=== PATIENT | female | born 1985 | race Caucasian/White ===

== ENCOUNTER 2019-09-18 12:19 | Emergency (ER) | payer OTHER, MEDICAID, SELFPAY ==
[2019-09-18 12:26] VITALS: BP 141/93; PULSE 102; RESP 15; TEMP 36.3; O2SAT 100; BMI 25.0
[2019-09-18 12:58] LABS: Add Manual Diff / Slide Review NO; Basophils Absolute Auto 100 /uL (0-100); Basophils Percent Auto 0.9 % (0-2); Eosinophils Absolute Auto 0 /uL (0-450); Eosinophils Percent Auto 0.3 % (2-4); Hematocrit 37.3 % (36-46); Hemoglobin 12.5 g/dL (12.0-16.0); Lymphocytes Absolute Auto 1900 /uL (1100-4500); Lymphocytes Percent Auto 14.9 % (25-40); Mean Corpuscular HGB Conc 33.5 % (30-36); Mean Corpuscular Hemoglobin 31.6 PG (26-34); Mean Corpuscular Volume 94.2 fL (80-100); Monocytes Absolute Auto 500 /uL (0-900); Monocytes Percent Auto 3.9 % (3-14); Neutrophils Absolute Auto 10200 /uL (1500-7000); Platelet Count 296 X10^3/uL (150-400); Red Blood Cell Count 3.96 X10^6/uL (4.0-5.2); Red Cell Distribution Width 13.3 % (11.6-14.8); White Blood Cell Count 12.8 X10^3/uL (4.5-11.0)
[2019-09-18 13:05] LABS: Prothrombin Time 11.4 SECONDS (10.1-12.7)
[2019-09-18 13:07] LABS: PTT Partial Thromboplastin Tim 28 SECONDS (26.4-36.2)
[2019-09-18 13:11] LABS: Alanine Aminotransferase 24 IU/L (<35); Albumin 4.6 g/dL (3.5-5.0); Albumin Globulin Ratio 1.4 (1.0-2.8); Alkaline Phosphatase 59 U/L (38-126); Aspartate Aminotransferase 39 IU/L (14-36); BUN Creatinine Ratio 27.1 (6-22); Bilirubin Total 0.4 mg/dL (0.2-1.3); Blood Urea Nitrogen 19 mg/dL (7-17); Calcium 9.5 mg/dL (8.4-10.2); Carbon Dioxide 25 mmol/L (22-32); Chloride 104 mmol/L (98-107); Creatine Kinase 306 U/L (30-135); Estimated Glomerular Filt Rate > 60.0 mL/min (>60); Globulin 3.4 g/dL (1.7-4.1); Glucose 123 mg/dL (70-100); HEMOLYSIS < 15 (0-50); Lipase 118 U/L (23-300); Potassium 4.2 mmol/L (3.4-5.1); Sodium 139 mmol/L (137-145)
[2019-09-18 13:23] LABS: Troponin I < 0.012 ng/mL (0.01-0.034)
[2019-09-18 13:26] LABS: CKMB % Relative Index 0.6 % (1.5-5.0); Creatine Kinase MB 1.75 ng/mL (<2.37)
--- NOTE | 2019-09-18 14:06 | DI.RAD.S_ITS ---
PROCEDURE: XR CHEST 2V INDICATIONS: cough, chest pain TECHNIQUE: 2 views of the chest were acquired. COMPARISON: [facility], CHEST 2 VIEW, 05/30/2016, 14:07. [facility], CHEST 2 VIEW, 08/09/2010, 17:01. FINDINGS: Surgical changes and devices: None. Lungs and pleura: Lungs are clear. No pleural effusions or pneumothorax. Mediastinum: Mediastinal contours are normal. Heart size is normal. Bones and chest wall: No suspicious bony abnormalities. Soft tissues appear unremarkable. IMPRESSION: Negative chest. No acute cardiopulmonary process is evident. Dictated by: Michelet Rutledge M.D. on 09/18/2019 at 13:29 Approved by: Michelet Rutledge M.D. on 09/18/2019 at 13:30
[2019-09-18] MEDS: MAG HYDROX/ALUMINUM/SIMETH SUS 20 ML, LIDOCAINE VISCOUS 2% 15 ML PO (14:48)
[2019-09-18 14:58] VITALS: BP 106/68; PULSE 80; O2SAT 100
--- NOTE | 2019-09-18 15:07 | ED_ITS ---
HPI - Chest Pain <JACOBY Cary - Last Filed: 09/19/19 00:16> General Chief Complaint: Chest Pain Stated Complaint: chest burning/pain,back stabbing pain 2xweek Time Seen by Provider: 09/18/19 12:47 Source: patient Mode of arrival: Ambulatory Limitations: no limitations History of Present Illness HPI narrative: This is a 34-year-old female, nonsmoker, who presents to ED with mid chest burning sensation for last 2 weeks. Patient reports she had cold symptoms with severe cough about 3-4 weeks ago which has been subsiding and getting better. Patient also reports having stabbing discomfort to the back for the 1st time this morning. Patient denies abdominal pain, nausea, vomiting, fever or chills. Patient cannot think of any aggravating and relieving factors. LMP 2 weeks ago and has no history of respiratory problems and otherwise very healthy. Related Data Previous Rx's Medication Instructions Recorded omeprazole 20 mg PO DAILY #14 cap 09/18/19 Allergies Allergy/AdvReac Type Severity Reaction Status Date / Time No Known Drug Allergies Allergy Verified 09/18/19 12:26 Review of Systems <JACOBY Cary - Last Filed: 09/19/19 00:16> Review of Systems Narrative: General: Denies fever, chills, fatigue, malaise, sweats. HEENT: Denies sinus pain, ear pain, sore throat, difficulty swallowing, dizziness. Respiratory: Denies dyspnea, (+) cough, wheezing, hemoptysis, sputum. Cardiovascular: Denies (+) midsternum burning chest pain, palpitations, orthopnea, edema. Gastrointestinal: Denies nausea, vomiting, abdominal pain, diarrhea, con stipation, melena. : Denies dysuria, frequency, incontinence, hematuria, urinary retention. Musculoskeletal: Denies weakness, joint pain or bony pain. Skin: Denies rash, skin lesions, or other. Neurologic: Denies weakness, headache, numbness, change in speech, confusion, seizures, incoordination. Psychiatric: No concerning psychosocial issues. 12-point review of systems is negative except for those stated above. Patient History <JACOBY Cary - Last Filed: 09/19/19 00:16> Surgical History Status post laparoscopy Family History Grandmother Age: 94 Diabetes mellitus Social History Smoking Status: Never smoker Smoking Status: Never smoker alcohol intake frequency: holidays/special occasions only Substance Use Type: does not use Exam <JACOBY Cary - Last Filed: 09/19/19 00:16> Narrative Exam Narrative: General appearance: well developed, well nourished, in no acute distress. Head: normocephalic, atraumatic, no scalp lesions, non-tender. ENT: Hearing grossly intact. Nose without bleeding, purulent discharge, septal hematoma or deviation. Mucous membrane moist, no mucosal lesion. Throat without erythema, tonsillar hypertrophy or exudate. Uvula in midline, airway patent. Neck/Thyroid: neck supple, full range of motion, no visible masses or meningeal signs. No JVD, non-tender without lymphadenopathy. Skin: no suspicious rashes, lesions over visible areas. Warm and dry and appropriate color for ethnicity. Heart: no clubbing, no cyanosis, no edema. S1 and S2 normal. RRR w/o murmurs, clicks, or bruits. Lungs: Breathing even and unlabored. No stridor. No accessory muscles used. Able to speak in full sentences. Chest: normal shape and expansion. No chest wall tenderness to palpate. Abdomen: non-obese, non-distended. Bowel sounds in 4 quadrants, soft to palpate. Neurologic: alert and oriented. Cognitive exam, OTOLARYNGOLOGIST and PNS grossly intact on informal exam. Psych: good eye contact, normal affect. Initial Vital Signs Initial Vital Signs: Vital Signs Temperature 97.4 F L 09/18/19 12:26 Pulse Rate 102 H 09/18/19 12:26 Respiratory Rate 15 09/18/19 12:26 Blood Pressure 141/93 H 09/18/19 12:26 Pulse Oximetry 100 09/18/19 12:26 <Yusef Rowe MD - Last Filed: 09/19/19 21:56> Initial Vital Signs Initial Vital Signs: Vital Signs Temperature 97.4 F L 09/18/19 12:26 Pulse Rate 102 H 09/18/19 12:26 Respiratory Rate 15 09/18/19 12:26 Blood Pressure 141/93 H 09/18/19 12:26 Pulse Oximetry 100 09/18/19 12:26 Scores <Artis JACOBY Martinez - Last Filed: 09/19/19 00:16> GCS [place] coma scale eye opening: Spontaneous [place] coma scale verbal response: Orientated [place] coma scale motor response: Obey commands [place] coma scale total score: 15 HEART Score Heart Score history: Slightly Suspicious Heart Score EKG: Non-Specific repolarization disturbance Heart Score Age: < 45 years old Heart Score risk factors: No known risk factors Heart Score troponin: < or = to normal limit Heart Score Total: 1 Course <Artis JACOBY Martinez - Last Filed: 09/19/19 00:16> Orders Ordered: Discontinued Medications Al Hydrox/Mg Hydrox/Simethicone 20 ml/ Lidocaine HCl 15 ml 0 ml PO NOW ONE Stop: 09/18/19 13:48 Last Admin: 09/18/19 14:48 Dose: 35 ml Documented by: SHARON Vital Signs Vital signs: Vital Signs - 8 hr 09/18/19 12:26 09/18/19 14:58 Temperature 97.4 F L Pulse Rate 102 H 80 Respiratory Rate 15 Blood Pressure 141/93 H Blood Pressure [Right Arm] 106/68 Pulse Oximetry 100 100 <Yusef Rowe MD - Last Filed: 09/19/19 21:56> Orders Ordered: Discontinued Medications Al Hydrox/Mg Hydrox/Simethicone 20 ml/ Lidocaine HCl 15 ml 0 ml PO NOW ONE Stop: 09/18/19 13:48 Last Admin: 09/18/19 14:48 Dose: 35 ml Documented by: SHARON Vital Signs Vital signs: Vital Signs - 8 hr 09/18/19 12:26 09/18/19 14:58 Temperature 97.4 F L Pulse Rate 102 H 80 Respiratory Rate 15 Blood Pressure 141/93 H Blood Pressure [Right Arm] 106/68 Pulse Oximetry 100 100 MDM - Chest Pain <Artis JACOBY Martinez - Last Filed: 09/19/19 00:16> Differential Diagnosis Differential diagnosis: Likely atypical chest pain, costochondritis, biliary colic and other (GERD) Medical Records Data Attestation: I reviewed the patient's medical records. Lab Data Attestation: I reviewed the patient's lab results. Result diagrams: 09/18/19 12:50 09/18/19 12:50 Labs: Lab Results 09/18/19 09/18/19 09/18/19 Range/Units 12:50 12:50 12:50 WBC 12.8 H (4.5-11.0) X10^3/uL RBC 3.96 L (4.0-5.2) X10^6/uL Hgb 12.5 (12.0-16.0) g/dL Hct 37.3 (36-46) % MCV 94.2 (80-100) fL MCH 31.6 (26-34) PG MCHC 33.5 (30-36) % RDW 13.3 (11.6-14.8) % Plt Count 296 (150-400) X10^3/uL Neut % (Auto) 80.0 H (50-75) % Lymph % (Auto) 14.9 L (25-40) % Emery % (Auto) 3.9 (3-14) % Eos % (Auto) 0.3 L (2-4) % Baso % (Auto) 0.9 (0-2) % Neut # (Auto) 34983 H (1656-0145) /uL Lymph # (Auto) 1900 (9003-7309) /uL Emery # (Auto) 500 (0-900) /uL Eos # (Auto) 0 (0-450) /uL Baso # (Auto) 100 (0-100) /uL PT 11.4 (10.1-12.7) SECONDS INR 1.0 (0.9-1.3) APTT 28 (26.4-36.2) SECONDS Sodium 139 (137-145) mmol/L Potassium 4.2 (3.4-5.1) mmol/L Chloride 104 (98-107) mmol/L Carbon Dioxide 25 (22-32) mmol/L BUN 19 H (7-17) mg/dL Creatinine 0.70 (0.52-1.04) mg/dL Estimated GFR > 60.0 (>60) mL/min BUN/Creatinine Ratio 27.1 H (6-22) Glucose 123 H (70-100) mg/dL Calcium 9.5 (8.4-10.2) mg/dL Total Bilirubin 0.4 (0.2-1.3) mg/dL AST 39 H (14-36) IU/L ALT 24 (<35) IU/L Alkaline Phosphatase 59 (38-126) U/L Total Creatine Kinase 306 H (30-135) U/L CK-MB (CK-2) 1.75 (<2.37) ng/mL CK-MB (CK-2) Rel Index 0.6 L (1.5-5.0) % Troponin I < 0.012 (0.01-0.034) ng/mL Total Protein 8.0 (6.3-8.2) g/dL Albumin 4.6 (3.5-5.0) g/dL Globulin 3.4 (1.7-4.1) g/dL Albumin/Globulin Ratio 1.4 (1.0-2.8) Lipase 118 (23-300) U/L Imaging Data Chest x-ray: Radiologist's Impression: [address] [address] XRay Report Signed Patient: Jeanine Rapp [facility]#: [id number] : 1985Acct:[id number] Age/Sex: 34 / FDate of Service: 09/18/19 Loc: ED Accession Number: [id number] Procedure: XR chest 2V Ordering Provider: Artis Martinez PROCEDURE: XR CHEST 2V INDICATIONS: cough, chest pain TECHNIQUE: 2 views of the chest were acquired. COMPARISON: [facility], CHEST 2 VIEW, 05/30/2016, 14:07. [facility], CHEST 2 VIEW, 08/09/2010, 17:01. FINDINGS: Surgical changes and devices: None. Lungs and pleura: Lungs are clear. No pleural effusions or pneumothorax. Mediastinum: Mediastinal contours are normal. Heart size is normal. Bones and chest wall: No suspicious bony abnormalities. Soft tissues appear unremarkable. IMPRESSION: Negative chest. No acute cardiopulmonary process is evident. Dictated by: Michelet Rutledge M.D. on 09/18/2019 at 13:29 Approved by: Michelet Rutledge M.D. on 09/18/2019 at 13:30 ECG Data Attestation: I personally reviewed and interpreted this ECG as follows: Prior ECG tracings: available for review Interpretation: ST rate at 102 DC int 144, normal QRS, QT/QTc 354/[address] elevation or depression. Nonspecific T wave anbormality NO significant change from previous EKG MDM Narrative Medical decision making narrative: This is a 34 year old female who is healthy presents to ED with 2 week duration of mid chest burning sensation. Patient had cold symptoms and severe cough about a week- 2 prior to her chest discomfort symptoms. She continues to have coughing but has been improving. Patient noticed stepping discomfort radiating to chest once this morning but denies nausea, abdominal pain, fever. EKG was sinus tachycardia rated [address] elevation or depression. Cardiac enzymes were negative today. Mildly leukocytosis with elevated neutrophil may likely due to bronchitis. CMP were unremarkable with very mildly elevated AST of 39 (14-36) without other liver function test. Normal lipase. Considered Cholecystitis but with normal lipase and benign liver function test w/o consistent abdominal discomfort radiating to back, nausea, or vomiting, ultrasound was not considered at this time. Mildly elevated CK which the patient had similar reading about 4 years ago (previous lab reviewed) . This may likely due to she works out regularly with mild dehyration and advised to hydrate adequately. Patient's chest pain is likely due to costochondritis from frequent coughing, exercise or GERD. Patient was medicated with this GI cocktail prior discharged to home and Rx of omeprazole daily. Patient advised to use Tylenol and or Motrin as needed for discomfort and return precautions were discussed. Patient verbalized understand and agrees with the treatment plan. <Yusef Rowe MD - Last Filed: 09/19/19 21:56> Lab Data Labs: Lab Results 09/18/19 09/18/19 09/18/19 Range/Units 12:50 12:50 12:50 WBC 12.8 H (4.5-11.0) X10^3/uL RBC 3.96 L (4.0-5.2) X10^6/uL Hgb 12.5 (12.0-16.0) g/dL Hct 37.3 (36-46) % MCV 94.2 (80-100) fL MCH 31.6 (26-34) PG MCHC 33.5 (30-36) % RDW 13.3 (11.6-14.8) % Plt Count 296 (150-400) X10^3/uL Neut % (Auto) 80.0 H (50-75) % Lymph % (Auto) 14.9 L (25-40) % Emery % (Auto) 3.9 (3-14) % Eos % (Auto) 0.3 L (2-4) % Baso % (Auto) 0.9 (0-2) % Neut # (Auto) 65587 H (0954-7563) /uL Lymph # (Auto) 1900 (8884-9155) /uL Emery # (Auto) 500 (0-900) /uL Eos # (Auto) 0 (0-450) /uL Baso # (Auto) 100 (0-100) /uL PT 11.4 (10.1-12.7) SECONDS INR 1.0 (0.9-1.3) APTT 28 (26.4-36.2) SECONDS Sodium 139 (137-145) mmol/L Potassium 4.2 (3.4-5.1) mmol/L Chloride 104 (98-107) mmol/L Carbon Dioxide 25 (22-32) mmol/L BUN 19 H (7-17) mg/dL Creatinine 0.70 (0.52-1.04) mg/dL Estimated GFR > 60.0 (>60) mL/min BUN/Creatinine Ratio 27.1 H (6-22) Glucose 123 H (70-100) mg/dL Calcium 9.5 (8.4-10.2) mg/dL Total Bilirubin 0.4 (0.2-1.3) mg/dL AST 39 H (14-36) IU/L ALT 24 (<35) IU/L Alkaline Phosphatase 59 (38-126) U/L Total Creatine Kinase 306 H (30-135) U/L CK-MB (CK-2) 1.75 (<2.37) ng/mL CK-MB (CK-2) Rel Index 0.6 L (1.5-5.0) % Troponin I < 0.012 (0.01-0.034) ng/mL Total Protein 8.0 (6.3-8.2) g/dL Albumin 4.6 (3.5-5.0) g/dL Globulin 3.4 (1.7-4.1) g/dL Albumin/Globulin Ratio 1.4 (1.0-2.8) Lipase 118 (23-300) U/L Discharge Plan Departure Patient Disposition: Home Clinical Impression: Atypical chest pain Gastroesophageal reflux disease Qualifiers: Esophagitis presence: esophagitis presence not specified Qualified Code(s): K21.9 - Gastro-esophageal reflux disease without esophagitis Discharge Date/Time: 09/18/19 15:03 Instructions: DI for Gastroesophageal Reflux Disease (GERD), DI for Atypical Chest Pain Activity Restrictions/Additional Instructions: You have been diagnosed with [atypical chest pain and likely GERD or costochondritis. Lab test today for cardiac enzyme, chemistries were unremar kable. Mildly elevated WBC and liver function test. Chest x-ray shows no acute findings. Please hydrate well with liquids and take it easy for next few days.]. What to do: *Take your medications as directed. You can take omeprazole daily and see if this helps with her discomfort. The medication has been transmitted to [facility] in [place]. You can take Tylenol or ibuprofen as needed for discomfort as well. *Follow up with your primary care provider in 2-3 days, call for an appointment. Let them know you were seen in the ED and that we asked you to be seen in follow up. *Return to ED if you have any new, worsening, or concerning symptoms, such as [different type of chest pain, breathing difficulty, unable to tolerate fluids, feeling like fainting, severe pain, fever or any acute concerns]. Prescriptions: New omeprazole 20 mg capsule,delayed release(DR/EC) 20 mg PO DAILY Qty: 14 RF: 0
== END 2019-09-18 15:03 | disposition home or self-care (01) ==
PROVIDERS: Emergency Medicine; Emergency Provider Nurse Practitioner Family; Family Provider Family Medicine
DX: R07.89 Other chest pain (principal); K21.9 Gastro-esophageal reflux disease without esophagitis; R00.1 Bradycardia, unspecified; R79.89 Other specified abnormal findings of blood chemistry; R05 Cough
CPT/HCPCS: 36415; 71046; 80053; 82550; 82553; 83690; 84484; 85025; 85610; 85730; 93005; 99284; 99285